=== PATIENT | female | born 1970 | race Two or more races ===

== ENCOUNTER 2017-09-04 22:57 | Emergency (ER) | payer OTHER ==
[~2017-09-04] VITALS: Ht 160 cm; Wt 70.0 kg
[~2017-09-04 22:57] MED LIST: ALPR1TAB2 PO; ATOR10TA PO; CALC600T4 PO; HYDR200T PO; IBUP200T48 PO; LISI-167 PO; META-23 PO; MULT-53 PO; OMEG10007 PO; OMEP40CA3 PO; ONDA4TAB7 PO; OXYC-306 PO; PRED10TA14 PO; SUCR1TAB PO; THRIVE PO; THRIVE TD; TIZA4CAP PO; TRAM50TA2 PO; TRIA50CA PO; VITA1TAB56 PO; VITAMIN C PO; VITAMIN D PO; VITAMIN E PO; [UNRECOGNIZED DRUG - OTHER] PO
[2017-09-04] MEDS ORDERED: PROCHLORPERAZINE 5 MG/ML, 2ML IVPush ONE (23:30)
[2017-09-04] MEDS ORDERED: SUMATRIPTAN 6MG/0.5ML SQ ONE (23:30)
[2017-09-04] MEDS ORDERED: SODIUM CHLORIDE 0.9% 1,000ML IVBOLUS ONE (23:30)
[2017-09-04] MEDS ORDERED: SODIUM CHLORIDE FLUSH 10ML SYR IVF ONE (23:30)
[2017-09-04] MEDS ORDERED: DIPHENHYDRAMINE 50 MG/ML, 1ML IVPush ONE (23:30)
[2017-09-04] MEDS ORDERED: KETOROLAC 30 MG/1 ML IVPush ONE (23:30)
[2017-09-04 23:42] LABS: HEMATOCRIT 36.8 % (34.6-47.8); HEMOGLOBIN 12.4 g/dL (11.7-16.4); WHITE BLOOD COUNT 7.6 x10^3/uL (3.4-10)
[2017-09-04 23:52] LABS: ASPARTATE AMINO TRANSFERASE 21 U/L (15-37); BLOOD UREA NITROGEN 11 mg/dL (7-18)
[2017-09-05] MEDS ORDERED: PROCHLORPERAZINE 5 MG/ML, 2ML ONE
[2017-09-05] MEDS ORDERED: SUMATRIPTAN 6MG/0.5ML SQ ONE
[2017-09-05] MEDS ORDERED: KETOROLAC 30 MG/1 ML ONE
[2017-09-05] MEDS ORDERED: DIPHENHYDRAMINE 50 MG/ML, 1ML ONE
[2017-09-05] MEDS ORDERED: OMNIPAQUE 350 MG/ML, 100ML BOTTLE ONE (01:55)
[2017-09-05 01:58] LABS: PATH.CAST-FLAG NOT PRESENT; SPERM-FLAG NOT PRESENT; SRC-FLAG NOT PRESENT; XTAL-FLAG NOT PRESENT; YLC-FLAG NOT PRESENT
[2017-09-05 02:11] VITALS: BP 175/91
== END 2017-09-05 03:11 | disposition home or self-care (01) ==
LOC: ED 09-05 00:16
DX: I10 Essential (primary) hypertension (principal); R10.84 Generalized abdominal pain; R51 Headache; K21.9 Gastro-esophageal reflux disease without esophagitis; E78.5 Hyperlipidemia, unspecified; I25.2 Old myocardial infarction
CPT/HCPCS: 36415; 70450; 74022; 74177; 80053; 81001; 83690; 85025; 93005; 96361; 96372; 96374; 96375; 99285; J0780; J1885; J3030; J7030; Q9967

== ENCOUNTER 2018-01-26 15:47 | Emergency (ER) | payer OTHER ==
[~2018-01-26] VITALS: Ht 160 cm; Wt 79.1 kg
[~2018-01-26 15:47] MED LIST changes: -IBUP200T48 PO; +IBUP200T49 PO
[2018-01-26] MEDS ORDERED: SODIUM CHLORIDE 0.9% 1,000ML IVBOLUS ONE (16:30)
[2018-01-26] MEDS ORDERED: SODIUM CHLORIDE FLUSH 10ML SYR IVF ONE (16:30)
[2018-01-26 16:54] LABS: BASOPHILS % (AUTO) 0 % (0-1); EOSINOPHILS % (AUTO) 0 % (1-7); LYMPHOCYTES # (AUTO) 0.53 x10^3/uL (1-3.4); LYMPHOCYTES % (AUTO) 5 % (22-44); MD NO; MEAN CORPUSCULAR HEMOGLOBIN 32.3 pg (27.0-34.8); MEAN CORPUSCULAR HGB CONC 33.4 g/dL (32.4-35.8); MEAN CORPUSCULAR VOLUME 96.6 fL (80-100); MEAN PLATELET VOLUME 7.5 fL (7.4-10.4); MONOCYTES # (AUTO) 0.06 x10^3/uL (0.2-0.8); MONOCYTES % (AUTO) 1 % (2-9); NEUTROPHILS # (AUTO) 9.37 x10^3/uL (1.8-6.8); NEUTROPHILS % (AUTO) 94 % (42-75); PLATELET COUNT 446 x10^3/uL (130-400); RED BLOOD COUNT 3.85 x10^6/uL (3.82-5.3); RED CELL DISTRIBUTION WIDTH 15.7 % (9.6-15.2)
[2018-01-26 17:02] LABS: ALANINE AMINOTRANSFERASE 42 U/L (12-78); ALBUMIN 3.9 g/dL (3.4-5.0); ANION GAP 10 mmol/L (5-15); CALCIUM 9.3 mg/dL (8.5-10.1); CHLORIDE 106 mmol/L (98-107); CREATININE 0.78 mg/dL (0.55-1.02)
[2018-01-26 17:07] LABS: ALKALINE PHOSPHATASE 91 U/L (45-117); BILIRUBIN,TOTAL 0.3 mg/dL (0.2-1.0); TOTAL PROTEIN 7.6 g/dL (6.4-8.2); TROPONIN I < 0.015 ng/mL (0.000-0.045)
[2018-01-26] MEDS ORDERED: DEXAMETHASONE 4 MG/ML, 1ML IVPush ONE (17:30)
[2018-01-26] MEDS ORDERED: KETOROLAC 30 MG/1 ML IVPush ONE (17:30)
[2018-01-26] MEDS ORDERED: METOCLOPRAMIDE 5 MG/ML, 2ML IVPush ONE (17:30)
[2018-01-26] MEDS ORDERED: KETOROLAC 30 MG/1 ML ONE (17:43)
[2018-01-26] MEDS ORDERED: METOCLOPRAMIDE 5 MG/ML, 2ML ONE (17:44)
[2018-01-26] MEDS ORDERED: DEXAMETHASONE 4 MG/ML, 5ML ONE (17:44)
[2018-01-26 18:45] VITALS: BP 143/89
[2018-01-26] MEDS ORDERED: OMNIPAQUE 350 MG/ML, 100ML BOTTLE ONE (19:08)
[2018-01-26] MEDS ORDERED: morphine SULFATE 10 MG/ML, 1ML IVPush ONE (19:30)
[2018-01-26] MEDS ORDERED: HYDROmorphone 1 MG/ML, 1ML IM ONE (19:30)
[2018-01-26] MEDS ORDERED: MORPHINE SULFATE 4 MG/ML, 1ML ONE (19:34)
== END 2018-01-26 20:09 | disposition home or self-care (01) ==
LOC: ED 20:08
DX: M54.2 Cervicalgia (principal); M54.6 Pain in thoracic spine; M79.652 Pain in left thigh; M79.651 Pain in right thigh; M94.0 Chondrocostal junction syndrome [Tietze]; E78.5 Hyperlipidemia, unspecified; Z90.49 Acquired absence of other specified parts of digestive tract
CPT/HCPCS: 36415; 71046; 71275; 80053; 83735; 84484; 85025; 85379; 93005; 96361; 96374; 96375; 99285; J1100; J1885; J2270; J2765; J7030; Q9967

== ENCOUNTER 2018-09-09 10:55 | Inpatient (IN) | payer OTHER ==
[~2018-09-09] VITALS: Ht 160 cm; Wt 77.1 kg
[~2018-09-09 10:55] MED LIST changes: -HYDR200T PO; +HYDR200T72 PO
[2018-09-09 11:51] LABS: BASOPHILS # (AUTO) 0.08 x10^3/uL (0-0.1); BASOPHILS % (AUTO) 1 % (0-1); EOSINOPHILS # (AUTO) 0.23 x10^3/uL (0-0.4); EOSINOPHILS % (AUTO) 2 % (1-7); LYMPHOCYTES # (AUTO) 1.37 x10^3/uL (1-3.4); LYMPHOCYTES % (AUTO) 13 % (22-44); MD NO; MEAN CORPUSCULAR HEMOGLOBIN 34.1 pg (27.0-34.8); MEAN CORPUSCULAR HGB CONC 33.5 g/dL (32.4-35.8); MEAN CORPUSCULAR VOLUME 101.6 fL (80-100); MEAN PLATELET VOLUME 7.4 fL (7.4-10.4); MONOCYTES # (AUTO) 0.38 x10^3/uL (0.2-0.8); MONOCYTES % (AUTO) 4 % (2-9); NEUTROPHILS # (AUTO) 8.77 x10^3/uL (1.8-6.8); NEUTROPHILS % (AUTO) 81 % (42-75); PLATELET COUNT 457 x10^3/uL (130-400); RED BLOOD COUNT 3.75 x10^6/uL (3.82-5.3); RED CELL DISTRIBUTION WIDTH 15.4 % (9.6-15.2)
[2018-09-09] MEDS ORDERED: MORPHINE SULFATE 4 MG/ML, 1ML IVPush PRN (12:00)
[2018-09-09 12:03] LABS: ALBUMIN 3.9 g/dL (3.4-5.0); ANION GAP 8 mmol/L (5-15); CALCIUM 9.2 mg/dL (8.5-10.1); CHLORIDE 102 mmol/L (98-107)
[2018-09-09 12:05] LABS: D-DIMER 0.34 ug/mlFEU (0.00-0.52); INTERNATIONAL NORMALIZED RATIO 1.03 (0.93-1.1); PROTHROMBIN TIME 10.6 Seconds (9.6-11.5)
[2018-09-09 12:08] LABS: ALKALINE PHOSPHATASE 90 U/L (45-117); BILIRUBIN,TOTAL 0.3 mg/dL (0.2-1.0); CREATININE 0.94 mg/dL (0.55-1.02); TOTAL PROTEIN 7.2 g/dL (6.4-8.2); TROPONIN I < 0.015 ng/mL (0.000-0.045)
[2018-09-09 12:11] LABS: ALANINE AMINOTRANSFERASE 37 U/L (12-78)
[2018-09-09] MEDS ORDERED: HYDROcodone/APAP 5/325 TABLET PO ONE (12:30)
[2018-09-09] MEDS ORDERED: HYDROcodone/APAP 5/325 TABLET ONE (12:33)
[2018-09-09] MEDS ORDERED: SODIUM CHLORIDE FLUSH 10ML SYR IVF ONE (13:00)
[2018-09-09] MEDS ORDERED: ASPIRIN 325 MG TABLET PO ONE (13:30)
[2018-09-09] MEDS ORDERED: ASPIRIN 325 MG TABLET ONE (13:32)
[2018-09-09] MEDS ORDERED: KETOROLAC 30 MG/1 ML IV PRN (14:00)
[2018-09-09] MEDS ORDERED: ENALAPRILAT 1.25 MG/ML, 2ML IV PRN (14:00)
[2018-09-09] MEDS ORDERED: IBUPROFEN 600 MG TABLET PO PRN (14:00)
[2018-09-09] MEDS ORDERED: ACETAMINOPHEN 325 MG TABLET PO PRN (14:00)
[2018-09-09] MEDS ORDERED: ONDANSETRON 4 MG TABLET PO PRN (14:00)
[2018-09-09] MEDS ORDERED: POTASSIUM CHLORIDE 20 MEQ TAB.ER.PRT PO ONE (14:00)
[2018-09-09] MEDS: ENOXAPARIN 30 MG/0.3 ML SQ SCH (15:56)
[2018-09-09] MEDS: METAXALONE 800 MG PO SCH ×2 (16:00→20:52)
[2018-09-09] MEDS ORDERED: METH25VI22 SQ (16:03)
[2018-09-09 18:00] LABS: TROPONIN I < 0.015 ng/mL (0.000-0.045)
[2018-09-09] MEDS: TIZANIDINE 4MG TABLET PO SCH (20:48)
[2018-09-09] MEDS: HYDROXYCHLOROQUINE 200 MG TABLET PO SCH (20:49)
[2018-09-09] MEDS: OXYcodone/APAP 7.5/325MG TABLET PO SCH (20:49)
[2018-09-09] MEDS: LISINOPRIL 10 MG TABLET PO SCH (20:49)
[2018-09-09] MEDS ORDERED: ATORVASTATIN 10 MG TABLET PO SCH (21:00)
[2018-09-09 21:03] VITALS: BP 121/72
[2018-09-09 21:20] LABS: MICROSCOPIC AUTO
[2018-09-09 21:22] LABS: CULTURE INDICATED? YES
[2018-09-09] MEDS ORDERED: ALPRazolam 1MG TABLET ONE (22:28)
[2018-09-09] MEDS ORDERED: TRAZODONE 50MG TABLET PO SCH (22:30)
[2018-09-09] MEDS ORDERED: ALPRazolam 1MG TABLET PO SCH (22:30)
[2018-09-10] MEDS: OXYcodone/APAP 7.5/325MG TABLET PO SCH ×2 (03:14→09:40)
[2018-09-10] MEDS: ENOXAPARIN 30 MG/0.3 ML SQ SCH (03:14)
[2018-09-10 03:25] VITALS: BP 93/61
[2018-09-10 05:22] LABS: ANION GAP 9 mmol/L (5-15); CALCIUM 9.4 mg/dL (8.5-10.1); CHLORIDE 107 mmol/L (98-107)
[2018-09-10 05:26] LABS: CHOL/HDL RATIO 5.9; CHOLESTEROL, TOTAL 248 mg/dL (140-239); CREATININE 0.72 mg/dL (0.55-1.02); HDL CHOL % 17 % (28-40); HDL CHOLESTEROL (DIRECT) 42 mg/dL (40-60); TRIGLYCERIDES 454 mg/dL (50-200)
[2018-09-10 05:27] LABS: BASOPHILS # (AUTO) 0.23 x10^3/uL (0-0.1); BASOPHILS % (AUTO) 3 % (0-1); EOSINOPHILS # (AUTO) 0.34 x10^3/uL (0-0.4); EOSINOPHILS % (AUTO) 5 % (1-7); LYMPHOCYTES # (AUTO) 2.72 x10^3/uL (1-3.4); LYMPHOCYTES % (AUTO) 39 % (22-44); MD NO; MEAN CORPUSCULAR HEMOGLOBIN 33.6 pg (27.0-34.8); MEAN CORPUSCULAR HGB CONC 33.6 g/dL (32.4-35.8); MEAN CORPUSCULAR VOLUME 100.2 fL (80-100); MEAN PLATELET VOLUME 7.8 fL (7.4-10.4); MONOCYTES # (AUTO) 0.39 x10^3/uL (0.2-0.8); MONOCYTES % (AUTO) 6 % (2-9); NEUTROPHILS # (AUTO) 3.32 x10^3/uL (1.8-6.8); NEUTROPHILS % (AUTO) 47 % (42-75); PLATELET COUNT 422 x10^3/uL (130-400); RED BLOOD COUNT 3.64 x10^6/uL (3.82-5.3)
[2018-09-10] MEDS: METAXALONE 800 MG PO SCH (07:31)
[2018-09-10 07:55] VITALS: BP 115/72
[2018-09-10] MEDS ORDERED: TRIAMTERENE 50 MG CAPSULE PO SCH ×2 (09:00)
[2018-09-10] MEDS ORDERED: TRAMADOL HCL PO SCH (09:00)
[2018-09-10] MEDS: HYDROXYCHLOROQUINE 200 MG TABLET PO SCH (09:00)
[2018-09-10] MEDS: TIZANIDINE 4MG TABLET PO SCH (09:00)
[2018-09-10] MEDS ORDERED: OMEPRAZOLE 80 MG PO SCH (09:00)
[2018-09-10] MEDS ORDERED: CALCIUM CARBONATE 500 MG TABLET PO SCH (09:00)
[2018-09-10] MEDS ORDERED: ALPRazolam 1MG TABLET PO SCH (09:00)
[2018-09-10] MEDS ORDERED: KETO10TA PO (09:12)
[2018-09-10] MEDS ORDERED: FUROSEMIDE 40 MG/4 ML ONE (09:30)
[2018-09-10] MEDS: LISINOPRIL 10 MG TABLET PO SCH (09:40)
== END 2018-09-10 12:11 | disposition home or self-care (01) | DRG 313 ==
LOC: ED 11:35 → EDIP 13:04 → 5SO 14:43
PROVIDERS: ADMIT Hospitalist; ATTEND Hospitalist
DX: R07.89 Other chest pain (principal); M32.9 Systemic lupus erythematosus, unspecified; M79.7 Fibromyalgia; E87.6 Hypokalemia; I10 Essential (primary) hypertension; D47.3 Essential (hemorrhagic) thrombocythemia; G89.29 Other chronic pain; G43.909 Migraine, unspecified, not intractable, without status migrainosus; F32.9 Major depressive disorder, single episode, unspecified; E78.2 Mixed hyperlipidemia; F41.1 Generalized anxiety disorder; G47.00 Insomnia, unspecified; E66.9 Obesity, unspecified; F31.9 Bipolar disorder, unspecified; K21.9 Gastro-esophageal reflux disease without esophagitis; M06.9 Rheumatoid arthritis, unspecified; D53.9 Nutritional anemia, unspecified; I25.2 Old myocardial infarction; Z82.3 Family history of stroke; Z91.81 History of falling; Z79.899 Other long term (current) drug therapy; Z68.30 Body mass index [BMI] 30.0-30.9, adult; Z90.49 Acquired absence of other specified parts of digestive tract; Z82.5 Family history of asthma and other chronic lower respiratory diseases; Z82.61 Family history of arthritis; Z83.49 Family history of other endocrine, nutritional and metabolic diseases; Z79.52 Long term (current) use of systemic steroids; Z90.710 Acquired absence of both cervix and uterus; Z90.721 Acquired absence of ovaries, unilateral; Z90.3 Acquired absence of stomach [part of]
CPT/HCPCS: 36415; 71045; 80048; 80053; 80061; 81001; 83880; 84484; 85025; 85379; 85610; 85730; 87086; 93005; 99285; G0378; J1650

== ENCOUNTER 2019-03-06 14:36 | Inpatient (IN) | payer OTHER ==
[~2019-03-06] VITALS: Ht 160 cm; Wt 79.0 kg
[~2019-03-06 14:36] MED LIST changes: +KETO10TA PO; +METH25VI22 SQ
[2019-03-06] MEDS ORDERED: ASPIRIN 81 MG TABLET CHEW PO ONE (15:00)
[2019-03-06] MEDS ORDERED: SODIUM CHLORIDE FLUSH 10ML SYR IVF ONE (15:00)
[2019-03-06] MEDS ORDERED: ONDANSETRON 2MG/ML, 2ML IVPush ONE (15:00)
[2019-03-06] MEDS ORDERED: MORPHINE SULFATE 4 MG/ML, 1ML ONE (15:05)
[2019-03-06] MEDS ORDERED: ONDANSETRON 2MG/ML, 2ML ONE (15:05)
[2019-03-06] MEDS ORDERED: ASPIRIN 81 MG TABLET CHEW ONE (15:05)
[2019-03-06] MEDS: MORPHINE SULFATE 4 MG/ML, 1ML IVPush PRN ×2 (15:23→17:06)
[2019-03-06 15:36] LABS: BASOPHILS # (AUTO) 0.03 x10^3/uL (0-0.1); BASOPHILS % (AUTO) 0 % (0-1); EOSINOPHILS # (AUTO) 0.26 x10^3/uL (0-0.4); EOSINOPHILS % (AUTO) 4 % (1-7); LYMPHOCYTES # (AUTO) 1.78 x10^3/uL (1-3.4); LYMPHOCYTES % (AUTO) 25 % (22-44); MD NO; MEAN CORPUSCULAR HEMOGLOBIN 32.7 pg (27.0-34.8); MEAN CORPUSCULAR HGB CONC 32.5 g/dL (32.4-35.8); MEAN CORPUSCULAR VOLUME 100.6 fL (80-100); MEAN PLATELET VOLUME 7.3 fL (7.4-10.4); MONOCYTES # (AUTO) 0.73 x10^3/uL (0.2-0.8); MONOCYTES % (AUTO) 10 % (2-9); NEUTROPHILS # (AUTO) 4.28 x10^3/uL (1.8-6.8); NEUTROPHILS % (AUTO) 61 % (42-75); PLATELET COUNT 388 x10^3/uL (130-400); RED BLOOD COUNT 3.67 x10^6/uL (3.82-5.3); RED CELL DISTRIBUTION WIDTH 15.7 % (9.6-15.2)
[2019-03-06 15:45] LABS: ALANINE AMINOTRANSFERASE 35 U/L (12-78); ALBUMIN 3.9 g/dL (3.4-5.0); ANION GAP 7 mmol/L (5-15); CALCIUM 9.1 mg/dL (8.5-10.1); CHLORIDE 104 mmol/L (98-107)
[2019-03-06 15:49] LABS: ALKALINE PHOSPHATASE 74 U/L (45-117); BILIRUBIN,TOTAL 0.3 mg/dL (0.2-1.0); TOTAL PROTEIN 7.1 g/dL (6.4-8.2); TROPONIN I < 0.015 ng/mL (0.000-0.045)
--- NOTE | 2019-03-06 16:02 | NUR ---
Pt denies pain relief, states "there is another stronger med that always works but I cant remeber the name of it"
[2019-03-06] MEDS ORDERED: HYDROmorphone 1 MG/ML, 1ML VIAL ONE (16:15)
[2019-03-06 16:18] LABS: HCT (SEDRATE) 36.9 % (34.6-47.8)
[2019-03-06] MEDS ORDERED: HYDROmorphone 2 MG/ML, 1ML IV ONE (16:30)
--- NOTE | 2019-03-06 17:05 | NUR ---
Report to Lenore RN, pt ready for transport.
--- NOTE | 2019-03-06 17:15 | NUR ---
Hospitalist at bedside, pt ready for transport after eval
--- NOTE | 2019-03-06 17:44 | NUR ---
Pt transfered to [facility], s upon transport
[2019-03-06] MEDS ORDERED: morphine SULFATE 10 MG/ML, 1ML IVPush ONE (18:00)
[2019-03-06] MEDS ORDERED: LABETALOL 5 MG/ML SYRINGE IVPush PRN (18:00)
[2019-03-06] MEDS ORDERED: POTASSIUM CHLORIDE 10% 40 MEQ/30 ML UDC PO ONE (18:00)
[2019-03-06] MEDS ORDERED: NITROGLYCERIN 0.4 MG BOTTLE (25 TABS) SL PRN (18:00)
[2019-03-06] MEDS ORDERED: ONDANSETRON 2MG/ML, 2ML IVPush PRN (18:00)
[2019-03-06] MEDS ORDERED: ONDANSETRON 4 MG TABLET PO PRN (18:00)
[2019-03-06] MEDS ORDERED: ONDANSETRON ODT 4 MG PO PRN (18:00)
[2019-03-06] MEDS ORDERED: POLYETHYLENE GLYCOL 17 GM PACKET PO PRN (18:00)
[2019-03-06 18:18] LABS: FREE T4 (FREE THYROXINE) 1.04 ng/dL (0.76-1.46)
[2019-03-06] MEDS ORDERED: HYDROmorphone 2 MG/ML, 1ML IV PRN (18:30)
[2019-03-06 19:08] LABS: CREATININE,URINE RANDOM 84.6 mg/dL
[2019-03-06 19:14] LABS: MICROSCOPIC AUTO
[2019-03-06 19:53] LABS: CULTURE INDICATED? NO
[2019-03-06 20:35] LABS: TROPONIN I 0.129 ng/mL (0.000-0.045)
[2019-03-06 20:40] VITALS: BP 108/73
[2019-03-06] MEDS: LISINOPRIL 10 MG TABLET PO SCH (20:44)
[2019-03-06] MEDS: SUCRALFATE 1 GM TABLET PO SCH (20:44)
[2019-03-06] MEDS ORDERED: ATORVASTATIN 10 MG TABLET PO SCH (21:00)
[2019-03-06] MEDS: HYDROmorphone 2 MG/ML, 1ML IV PRN (21:24)
[2019-03-06] MEDS: METHOCARBAMOL 750 MG TABLET PO PRN (21:25)
[2019-03-06] MEDS ORDERED: METO-282 PO (21:37)
[2019-03-06] MEDS ORDERED: [UNRECOGNIZED DRUG - CODE] PO (21:37)
[2019-03-06] MEDS ORDERED: SULF500T36 PO (21:37)
[2019-03-06] MEDS ORDERED: VALP250C59 PO (21:37)
[2019-03-06] MEDS ORDERED: LEUC5TAB12 PO (21:37)
[2019-03-06] MEDS ORDERED: ICOS1CAP PO (21:37)
[2019-03-06] MEDS ORDERED: ATOR-2 PO (21:37)
[2019-03-06] MEDS ORDERED: DULO30CA2 PO (21:37)
[2019-03-06] MEDS ORDERED: RANI300T PO (21:37)
[2019-03-06] MEDS: SULFASALAZINE 500 MG TABLET PO SCH (22:47)
[2019-03-06] MEDS: METOPROLOL SUCCINATE 25 MG TAB.ER.24H PO SCH (22:47)
[2019-03-06] MEDS: DULOXETINE 30 MG CAPSULE.DR PO SCH (22:47)
[2019-03-06] MEDS: VALPROATE SODIUM 250 MG/5 ML ORAL SOLN PO SCH (23:51)
[2019-03-06] MEDS: ALPRazolam 1MG TAB PO SCH (23:51)
[2019-03-07 02:14] VITALS: BP 121/83
[2019-03-07 05:32] LABS: BASOPHILS % (AUTO) 0 % (0-1); EOSINOPHILS % (AUTO) 0 % (1-7); LYMPHOCYTES # (AUTO) 0.86 x10^3/uL (1-3.4); LYMPHOCYTES % (AUTO) 10 % (22-44); MD NO; MEAN CORPUSCULAR HEMOGLOBIN 33.4 pg (27.0-34.8); MEAN CORPUSCULAR HGB CONC 33.5 g/dL (32.4-35.8); MEAN CORPUSCULAR VOLUME 99.8 fL (80-100); MEAN PLATELET VOLUME 7.3 fL (7.4-10.4); MONOCYTES # (AUTO) 0.56 x10^3/uL (0.2-0.8); MONOCYTES % (AUTO) 6 % (2-9); NEUTROPHILS # (AUTO) 7.55 x10^3/uL (1.8-6.8); NEUTROPHILS % (AUTO) 84 % (42-75); PLATELET COUNT 377 x10^3/uL (130-400); RED BLOOD COUNT 3.49 x10^6/uL (3.82-5.3); RED CELL DISTRIBUTION WIDTH 15.3 % (9.6-15.2)
[2019-03-07 05:42] LABS: CHLORIDE 107 mmol/L (98-107)
[2019-03-07 05:51] LABS: ALANINE AMINOTRANSFERASE 29 U/L (12-78); ALBUMIN 3.3 g/dL (3.4-5.0); ALKALINE PHOSPHATASE 67 U/L (45-117); ANION GAP 6 mmol/L (5-15); BILIRUBIN,TOTAL 0.3 mg/dL (0.2-1.0); CALCIUM 8.8 mg/dL (8.5-10.1); CREATININE 0.73 mg/dL (0.55-1.02); TOTAL PROTEIN 6.8 g/dL (6.4-8.2); TROPONIN I 0.038 ng/mL (0.000-0.045)
[2019-03-07 05:57] LABS: THYROID STIMULATING HORMONE 0.384 mIU/L (0.358-3.740)
[2019-03-07] MEDS: SUCRALFATE 1 GM TABLET PO SCH ×4 (06:21→21:42)
[2019-03-07 07:51] VITALS: BP 97/51
[2019-03-07] MEDS: CALCIUM CARBONATE 500 MG TAB.CHEW PO SCH (08:54)
[2019-03-07] MEDS: FAMOTIDINE 40 MG TABLET PO SCH ×2 (08:54→21:41)
[2019-03-07] MEDS: LISINOPRIL 10 MG TABLET PO SCH ×2 (08:56→21:43)
[2019-03-07] MEDS: VALPROIC ACID 250 MG CAPSULE PO SCH (08:57)
[2019-03-07] MEDS: SULFASALAZINE 500 MG TABLET PO SCH ×3 (08:57→21:43)
[2019-03-07] MEDS: METOPROLOL SUCCINATE 25 MG TAB.ER.24H PO SCH (08:57)
[2019-03-07] MEDS ORDERED: FAMOTIDINE 40 MG TABLET PO SCH (09:00)
[2019-03-07] MEDS ORDERED: TRIAMTERENE 50 MG CAPSULE PO SCH (09:00)
[2019-03-07] MEDS ORDERED: MULTIVIT.W/IRON, MINERALS ORAL SOL PO SCH (09:00)
[2019-03-07] MEDS ORDERED: ALPRazolam 1MG TAB PO SCH (09:00)
[2019-03-07] MEDS: VASCEPA 2 GM HOMEMEDPO SCH ×2 (09:02→21:46)
[2019-03-07] MEDS ORDERED: REGADENOSON 0.4 MG/5 ML SYRINGE ONE (09:31)
[2019-03-07] MEDS ORDERED: TRIA1CAP PO (09:32)
[2019-03-07 11:55] VITALS: BP 108/73
[2019-03-07] MEDS: HYDROmorphone 2 MG/ML, 1ML IV PRN (11:56)
[2019-03-07] MEDS: TRIAMTERENE-HCTZ 37.5/25 MG TABLET PO SCH (11:56)
[2019-03-07] MEDS: SENNA/DOCUSATE TABLET PO SCH (12:04)
[2019-03-07 12:34] VITALS: BP 111/71
[2019-03-07] MEDS ORDERED: OMNIPAQUE 350 MG/ML, 100ML BOTTLE ONE (16:27)
[2019-03-07] MEDS: KETOROLAC 30 MG/1 ML IVPush PRN (18:21)
[2019-03-07 20:01] VITALS: BP 127/81
[2019-03-07] MEDS ORDERED: ATORVASTATIN 80 MG TABLET PO SCH (21:00)
[2019-03-07] MEDS: METHOCARBAMOL 750 MG TABLET PO PRN (21:41)
[2019-03-07] MEDS: DULOXETINE 30 MG CAPSULE.DR PO SCH (21:42)
[2019-03-07] MEDS: ALPRazolam 1MG TAB PO SCH (21:43)
[2019-03-07] MEDS: VALPROATE SODIUM 250 MG/5 ML ORAL SOLN PO SCH (21:44)
[2019-03-08 00:06] VITALS: BP 137/86
[2019-03-08] MEDS: METOPROLOL SUCCINATE 25 MG TAB.ER.24H PO SCH (05:20)
[2019-03-08] MEDS: SUCRALFATE 1 GM TABLET PO SCH (05:20)
[2019-03-08 05:24] LABS: BASOPHILS # (AUTO) 0.04 x10^3/uL (0-0.1); BASOPHILS % (AUTO) 1 % (0-1); EOSINOPHILS % (AUTO) 0 % (1-7); LYMPHOCYTES % (AUTO) 13 % (22-44); MD NO; MEAN CORPUSCULAR HEMOGLOBIN 33.5 pg (27.0-34.8); MEAN CORPUSCULAR HGB CONC 33.6 g/dL (32.4-35.8); MEAN CORPUSCULAR VOLUME 99.7 fL (80-100); MEAN PLATELET VOLUME 7.3 fL (7.4-10.4); MONOCYTES # (AUTO) 0.42 x10^3/uL (0.2-0.8); MONOCYTES % (AUTO) 5 % (2-9); NEUTROPHILS # (AUTO) 7.25 x10^3/uL (1.8-6.8); NEUTROPHILS % (AUTO) 82 % (42-75); PLATELET COUNT 441 x10^3/uL (130-400); RED BLOOD COUNT 3.62 x10^6/uL (3.82-5.3); RED CELL DISTRIBUTION WIDTH 15.2 % (9.6-15.2)
[2019-03-08 05:34] LABS: CHLORIDE 103 mmol/L (98-107)
[2019-03-08 05:40] LABS: ALANINE AMINOTRANSFERASE 27 U/L (12-78); ALBUMIN 3.3 g/dL (3.4-5.0); ALKALINE PHOSPHATASE 74 U/L (45-117); ANION GAP 9 mmol/L (5-15); BILIRUBIN,TOTAL 0.5 mg/dL (0.2-1.0); CALCIUM 8.6 mg/dL (8.5-10.1); CREATININE 0.71 mg/dL (0.55-1.02); TOTAL PROTEIN 6.9 g/dL (6.4-8.2)
[2019-03-08 07:08] VITALS: BP 115/73
[2019-03-08 08:08] VITALS: BP 134/81
[2019-03-08] MEDS: FAMOTIDINE 40 MG TABLET PO SCH (08:10)
[2019-03-08] MEDS: CALCIUM CARBONATE 500 MG TAB.CHEW PO SCH (08:10)
[2019-03-08] MEDS: VALPROIC ACID 250 MG CAPSULE PO SCH (08:10)
[2019-03-08] MEDS: SULFASALAZINE 500 MG TABLET PO SCH (08:10)
[2019-03-08] MEDS: LISINOPRIL 10 MG TABLET PO SCH (08:10)
[2019-03-08] MEDS: SENNA/DOCUSATE TABLET PO SCH (08:10)
[2019-03-08] MEDS: TRIAMTERENE-HCTZ 37.5/25 MG TABLET PO SCH (08:10)
[2019-03-08] MEDS: VASCEPA 2 GM HOMEMEDPO SCH (08:11)
[2019-03-08] MEDS ORDERED: MULTIVIT.W/IRON, MINERALS ORAL SOL PO SCH (09:00)
[2019-03-08] MEDS ORDERED: PRED20TA PO (09:49)
[2019-03-08] MEDS ORDERED: OMEP-110 PO (09:49)
[2019-03-08] MEDS: KETOROLAC 30 MG/1 ML IVPush PRN (10:25)
== END 2019-03-08 11:00 | disposition home or self-care (01) | DRG 547 ==
LOC: ED 15:27 → EDIP 16:20 → 5SO 17:40 → DCLOUNGE 03-08 10:49
PROVIDERS: ADMIT Internal Medicine; ATTEND Internal Medicine
DX: M32.9 Systemic lupus erythematosus, unspecified (principal); R07.81 Pleurodynia; D75.89 Other specified diseases of blood and blood-forming organs; E78.5 Hyperlipidemia, unspecified; E87.6 Hypokalemia; F31.9 Bipolar disorder, unspecified; I10 Essential (primary) hypertension; I25.2 Old myocardial infarction; M06.9 Rheumatoid arthritis, unspecified; M79.7 Fibromyalgia; Z66 Do not resuscitate; Z82.5 Family history of asthma and other chronic lower respiratory diseases; Z90.710 Acquired absence of both cervix and uterus; Z90.722 Acquired absence of ovaries, bilateral
CPT/HCPCS: 36415; 71045; 71275; 78452; 80053; 81001; 82570; 83605; 83735; 84100; 84156; 84439; 84443; 84484; 85025; 85651; 86141; 93005; 93017; 93306; 96374; 99285; G0378; J1170; J1885; J2405; J2785; Q9967; A9502; C9898; J2270; J7512

== ENCOUNTER 2019-07-07 19:09 | Inpatient (IN) | payer OTHER ==
[~2019-07-07] VITALS: Ht 160 cm; Wt 79.4 kg
[2019-07-10 08:18] VITALS: BP 121/87
== END 2019-07-10 12:17 | disposition home or self-care (01) | DRG 103 ==
LOC: ED 21:55 → EDIP 21:56 → 4EST 22:47 → 4WST 07-08 18:17 → DCLOUNGE 07-10 12:09
PROVIDERS: ADMIT Family Medicine; ATTEND Family Medicine
DX: G43.109 Migraine with aura, not intractable, without status migrainosus (principal); I16.9 Hypertensive crisis, unspecified; G81.90 Hemiplegia, unspecified affecting unspecified side; D75.89 Other specified diseases of blood and blood-forming organs; E78.5 Hyperlipidemia, unspecified; Z91.013 Allergy to seafood; E87.6 Hypokalemia; F31.9 Bipolar disorder, unspecified; H11.31 Conjunctival hemorrhage, right eye; I10 Essential (primary) hypertension; I25.2 Old myocardial infarction; M06.9 Rheumatoid arthritis, unspecified; M32.9 Systemic lupus erythematosus, unspecified; M79.7 Fibromyalgia; R29.810 Facial weakness; Z90.710 Acquired absence of both cervix and uterus
CPT/HCPCS: 36415; 70450; 70486; 70496; 70498; 70553; 71045; 80047; 80048; 80053; 82607; 85025; 85610; 85730; 93005; 96374; 96375; A9585; G0378; J1885; J0780; J1200; J7512

== ENCOUNTER 2019-07-11 10:40 | Emergency (ER) | payer OTHER ==
[~2019-07-11] VITALS: Ht 160 cm; Wt 77.6 kg
[2019-07-11 15:46] VITALS: BP 112/67
== END 2019-07-11 15:57 | disposition home or self-care (01) ==
LOC: ED 15:52
DX: I95.2 Hypotension due to drugs (principal); G43.909 Migraine, unspecified, not intractable, without status migrainosus; F31.9 Bipolar disorder, unspecified; I25.2 Old myocardial infarction; E78.5 Hyperlipidemia, unspecified; Z90.89 Acquired absence of other organs; Z90.710 Acquired absence of both cervix and uterus; Z90.721 Acquired absence of ovaries, unilateral
CPT/HCPCS: 36415; 80048; 82040; 85025; 96361; 96374; 99283; J1885; J7030